=== PATIENT | male | born 1960 | race Caucasian/White ===

== ENCOUNTER 2016-04-18 08:33 | Emergency (ER) | payer OTHER ==
[2016-04-18 08:52] VITALS: BP 130/82; PULSE 65; RESP 16; TEMP 98.8; O2SAT 98
[2016-04-18] MEDS ORDERED: IBUPROFEN 600 MG TAB PO ONE (09:01)
--- NOTE | 2016-04-18 09:10 | UCPHY ---
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 Complains of pain with ambulation, particularly with going upstairs. He denies direct trauma or fall. REVIEW OF SYSTEMS: Aside from elements discussed in the HPI, a comprehensive 10-point review of systems was reviewed and is negative. PMH: Denies history of knee surgery. SOCIAL HISTORY: Works as a baker. FAMILY HISTORY: Reviewed, noncontributory PHYSICAL EXAM: General:Patient is alert, in no acute distress. Extremities: Left knee: Normal appearance. Full range of motion. Tenderness to palpation is present over the medial aspect of the knee. No effusion. Neuro: Oriented x3. Normal motor function. Normal sensory function. Smoking Status: Never smoked Constitutional: Initial Vital Signs Temperature (C) 37.1 C 04/18/16 08:49 Heart Rate 65 04/18/16 08:49 Respiratory Rate 16 04/18/16 08:49 Blood Pressure 130/82 H 04/18/16 08:49 O2 Sat (%) 98 04/18/16 08:49 O2 Delivery Mode Room Air Allergies/Adverse Reactions: No Known Allergies Allergy (Verified 04/18/16 08:52) Home Medications: Medication Instructions Recorded Allopurinol [Allopurinol 300 MG 300 mg PO DAILY 07/06/11 (RX)] Amlodipine Besylate/Benazepril 1 each PO DAILY 07/06/11 [Amlodipine-Benazepril 10-20 mg] Metoprolol/Hydrochlorothiazide 0.5 each PO DAILY 07/06/11 [Lopressor Hct 50-25 Tablet] Omeprazole Magnesium [Prilosec Otc] 20 mg PO DAILY 07/06/11 Indomethacin [Indocin 25 mg (RX)] 75 mg PO BID 07/08/11 Potassium Cl [Klor-Con 20 meq (RX)] 20 meq PO DAILY #30 tab 04/07/12 MDM/Departure - MDM Diagnostics: X-ray of the left knee is negative for fracture or dislocation. Viewed and interpreted by myself. ED Course/Re-evaluation: This patient presents with knee pain, likely representing knee sprain or meniscus injury. We will refer him to an orthopedist. - Depart Disposition: Home, Routine, Self-Care Clinical Impression: Knee sprain Qualifiers: Encounter type: initial encounter Involved ligament of knee: unspecified ligament Laterality: left Qualified Code(s): S83.92XA - Sprain of unspecified site of left knee, initial encounter Condition: Good Instructions: Knee Sprain (ED) Additional Instructions: Rest, ice, elevation. Follow up with an orthopedic surgeon within one week if pain persists. Return to the emergency department for worsening pain, swelling , numbness, weakness or other concerns. Wear splint for comfort, weight bear as tolerated. Use ibuprofen as directed. Stand Alone Forms: Work Excuse Referrals: NONE *PRIMARY CARE P,. [Primary Care Provider] - As per Instructions Grant Lynn MD [Medical Doctor] - As per Instructions - PQRS PQRS Measurement: 134: Depression screening and followup, PRIME MD-PHQ2 (12 years and older) Over the last 2 weeks, how often have you been bothered by any of the following problems? 1. Feeling down, depressed, or hopeless? 2. Little interest or pleasure in doing things? Patient answered no to both 1 and 2 130: Documentation of medications. Reviewed all patient medications, doses, route and frequency. 226: Do you smoke? No. 51: 18 years old and older with diagnosis of COPD, spirometry performance. Spirometry not performed; equipment not available. Patient has no history of COPD 52: 18 years old and older with COPD and symptoms of COPD or FEV1<60% predicted prescribed a B Agonist. Spirometry not performed; equipment not available.
== END 2016-04-18 09:44 | disposition home or self-care (01) ==
LOC: CED 08:33
DX: S83.92XA Sprain of unspecified site of left knee, initial encounter (principal); X50.1XXA Overexertion from prolonged static or awkward postures, initial encounter
CPT/HCPCS: 73564-PO; 99214-PO; G0463-PO; L1830

== ENCOUNTER → 2016-08-19 | Outpatient (CLI) | payer OTHER | LOC: CIMAGING 14:51 | PROVIDERS: ATTEND Family Medicine | DX: R10.30 Lower abdominal pain, unspecified (principal) | CPT/HCPCS: 76882-PO ==

== ENCOUNTER → 2016-12-04 | Outpatient (CLI) | payer OTHER ==
[~2016-12-04] MED LIST: IOPAMIDOL (ISOVUE-300) 100 ML BTL ONE
== END ==
LOC: CIMAGING 13:43
PROVIDERS: ATTEND Family Medicine
DX: R16.0 Hepatomegaly, not elsewhere classified (principal); R16.1 Splenomegaly, not elsewhere classified; Z98.890 Other specified postprocedural states; Z87.19 Personal history of other diseases of the digestive system
CPT/HCPCS: 74177-PO; Q9967

== ENCOUNTER 2016-12-23 08:50 | Emergency (ER) | payer OTHER ==
--- NOTE | 2016-12-23 09:02 | CPEKG ---
Heart Rate: 59 RR Interval: 1017 P-R Interval: 196 QRSD Interval: 102 QT Interval: 424 QTC Interval: 420 P [place]: 25 QRS [place]: 9 T Wave [place]: 22 EKG Severity - ABNORMAL ECG - EKG Impression: SINUS RHYTHM EKG Impression: PROBABLE INFERIOR INFARCT, OLD Electronically Signed By: Raj Bee 23-Dec-2016 10:40:30
[2016-12-23 09:05] VITALS: RESP 16; TEMP 98.6
--- NOTE | 2016-12-23 09:11 | EDPHY ---
H & P Stated Complaint: chest pain since last night and sob and left arm weakness. Time Seen by Provider: 12/23/16 09:01 HPI/ROS: Chief Complaint: Chest pain HPI: 56-year-old male with a history of hypertension presenting with left sided chest pain which started last night about 7 o'clock last until 2:00 a.m.. Patient woke up pain-free this morning. But primary physician was told to come the emergency depart for further evaluation. He does have some shortness of breath when he walks up stairs. He also has been having some increasing leg swelling. He had an echocardiogram done last week but has not yet had the result. No recent fevers or chills. No cough. No nausea or vomiting. Patient states he has had similar pains in the past but is just ignored them. Has had a catheterization years ago. Has a family history of coronary disease in his father. Pain is not pleuritic. At worst is a 5/10 and is dull. There are no aggravating or alleviating factors. ROS: 10 point Review of Systems is negative except as noted in the HPI. PMH: Hypertension, gout Social History: No smoking, no alcohol, no recreational drug use Family History: Father had coronary disease in his 60s Physical Exam: Gen: Awake, Alert, No Distress HEENT: Nose: no rhinorrhea Eyes: PERRLA, EOMI Mouth: Moist mucosa Neck: Supple, no JVD Chest: nontender, lungs clear to auscultation Heart: S1, S2 normal, no murmur Abd: Soft, non-tender, no guarding Back: no CVA tenderness, no midline tenderness Ext: 1+ edema, non-tender Skin: no rash Neuro: CN II-XII intact, Sensation grossly intact, Strength 5/5 in bilateral upper and lower extremities - Personal History Current Tetanus/Diphtheria Vaccine: Yes Current Tetanus Diphtheria and Acellular Pertussis (TDAP): Yes Tetanus Vaccine Date: unsure - Medical/Surgical History Hx Asthma: No Hx Chronic Respiratory Disease: No Hx Diabetes: No Hx Cardiac Disease: No Hx Renal Disease: No Hx Cirrhosis: No Hx Alcoholism: Yes Hx HIV/AIDS: No Hx Splenectomy or Spleen Trauma: No Other PMH: PMH:HTN,GOUT,HYPOKALEMIA. PSH:APPY,Hernia repair. Chews tobacco 40 + years. quit drinking etoh in Feb 2016 - Social History Smoking Status: Never smoked Constitutional: Initial Vital Signs Temperature (C) 37 C 12/23/16 08:58 Heart Rate 59 L 12/23/16 08:58 Respiratory Rate 16 12/23/16 08:58 Blood Pressure 143/85 H 12/23/16 08:58 O2 Sat (%) 96 12/23/16 08:58 O2 Delivery Mode Room Air Allergies/Adverse Reactions: No Known Allergies Allergy (Verified 12/23/16 09:05) Home Medications: Medication Instructions Recorded Allopurinol [Allopurinol 300 MG 300 mg PO DAILY 07/06/11 (RX)] Amlodipine Besylate/Benazepril 1 each PO DAILY 07/06/11 [Amlodipine-Benazepril 10-20 mg] Potassium Cl [Klor-Con 20 meq (RX)] 20 meq PO DAILY #30 tab 04/07/12 Allopurinol 12/23/16 Furosemide 12/23/16 Metoprolol Succinate 12/23/16 Trazad 12/23/16 VITAMIN B COMPLEX 12/23/16 Vitamin D3 12/23/16 Medical Decision Making - Diagnostics EKG Interpretation: ECG time 9:00 a.m.. Is sinus rhythm with a rate of 59, normal axis, normal intervals, there are Q-waves in leads to 3 in AVF consistent with a old infarct. This is unchanged from an ECG from 07/01/2015. Imaging Results: Imaging Impressions Chest X-Ray 12/23/16 09:20 Impression: Stable mild cardiomegaly and right middle lobe linear scarring, compared to 07/01/2015. Imaging: I viewed and interpreted images myself ED Course/Re-evaluation: 56-year-old male who had chest pain yesterday evening. He has been pain-free since 2:00 a.m.. ECG shows no acute changes. Troponin is negative. Chest x- ray shows mild cardiomegaly which is unchanged from prior. Patient had NyQuil week ago is awaiting those results. No evidence of acute cardiac ischemia at this time. He will be discharged with referral to follow up with primary care physician and with Cardiology. Return for any concerns. - Data Points Laboratory Results: Laboratory Results 12/23/16 09:16 12/23/16 09:13 12/23/16 12/23/16 12/23/16 09:16 09:16 09:13 WBC 7.07 10^3/uL 10^3/uL (3.80-9.50) RBC 5.29 10^6/uL 10^6/uL (4.40-6.38) Hgb 16.3 g/dL g/dL (13.7-17.5) Hct 45.0 % % (40.0-51.0) MCV 85.1 fL fL (81.5-99.8) MCH 30.8 pg pg (27.9-34.1) MCHC 36.2 g/dL g/dL (32.4-36.7) RDW 13.2 % % (11.5-15.2) Plt Count 184 10^3/uL 10^3/uL (150-400) MPV 8.3 fL L fL (8.7-11.7) Neut % (Auto) 72.8 % % (39.3-74.2) Lymph % (Auto) 15.4 % % (15.0-45.0) [place] % (Auto) 8.1 % % (4.5-13.0) Eos % (Auto) 2.5 % % (0.6-7.6) Baso % (Auto) 0.6 % % (0.3-1.7) Nucleat RBC Rel Count 0.0 % % (0.0-0.2) Absolute Neuts (auto) 5.15 10^3/uL 10^3/uL (1.70-6.50) Absolute Lymphs (auto) 1.09 10^3/uL 10^3/uL (1.00-3.00) Absolute Monos (auto) 0.57 10^3/uL 10^3/uL (0.30-0.80) Absolute Eos (auto) 0.18 10^3/uL 10^3/uL (0.03-0.40) Absolute Basos (auto) 0.04 10^3/uL 10^3/uL (0.02-0.10) Absolute Nucleated RBC 0.00 10^3/uL 10^3/uL (0-0.01) Immature Gran % 0.6 % % (0.0-1.1) Immature Gran # 0.04 10^3/uL 10^3/uL (0.00-0.10) Sodium 141 mEq/L mEq/L (134-144) Potassium 4.2 mEq/L mEq/L (3.5-5.2) Chloride 100 mEq/L mEq/L (97-110) Carbon Dioxide 26 mEq/l mEq/l (22-31) Anion Gap 15 mEq/L mEq/L (8-16) BUN 6 mg/dL L mg/dL (7-23) Creatinine 0.8 mg/dL mg/dL (0.7-1.3) Estimated GFR > 60 Glucose 96 mg/dL mg/dL (70-100) Calcium 10.1 mg/dL mg/dL (8.5-10.4) Troponin I < 0.012 ng/mL ng/mL (0.000-0.034) Medications Given: Discontinued Medications Aspirin (Aspirin) 243 mg PO EDNOW ONE Stop: 12/23/16 09:21 Last Admin: 12/23/16 09:24 Dose: 243 mg Departure - Departure Disposition: Home, Routine, Self-Care Clinical Impression: Chest pain Condition: Good Instructions: Chest Pain (ED) Additional Instructions: It is very important that 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 I have given you a referral to Dr. Pearce. Return to the emergency department for return of chest pain, worsening shortness of breath, fevers, chills, or any other concerns. Referrals: Nathalia Miguel DO [Primary Care Provider] - As per Instructions Edmund Pearce MD [Medical Doctor] - As per Instructions
[2016-12-23] MEDS ORDERED: ASPIRIN 81 MG CHEWABLE TAB PO ONE (09:20)
[2016-12-23 09:26] LABS: % IMMATURE GRANULYOCYTES 0.6 % (0.0-1.1); ABSOLUTE IMMATURE GRANULOCYTES 0.04 10^3/uL (0.00-0.10); ADD DIFF? NO; ADD MORPH? NO; ADD SCAN? NO; ATYPICAL LYMPHOCYTE FLAG 0 (0-99); FRAGMENT RBC FLAG 0 (0-99); HEMOGLOBIN 16.3 g/dL (13.7-17.5); LEFT SHIFT FLG 0 (0-99); LIPEMIA HEMOLYSIS FLAG 90 (0-99); MEAN CELL HEMOGLOBIN 30.8 pg (27.9-34.1); MEAN CELL HEMOGLOBIN CONCENTR. 36.2 g/dL (32.4-36.7); MEAN CELL VOLUME 85.1 fL (81.5-99.8); MEAN PLATELET VOLUME 8.3 fL (8.7-11.7); PLATELET CLUMPS FLAG 0 (0-99); PLATELET COUNT 184 10^3/uL (150-400); RED BLOOD CELL COUNT 5.29 10^6/uL (4.40-6.38); RED CELL DISTRIBUTION WIDTH 13.2 % (11.5-15.2)
[2016-12-23 10:16] LABS: ANION GAP 15 mEq/L (8-16); CALCIUM 10.1 mg/dL (8.5-10.4); CARBON DIOXIDE 26 mEq/l (22-31); CHLORIDE 100 mEq/L (97-110); CREATININE 0.8 mg/dL (0.7-1.3); GLOMERULAR FILTRATION RATE > 60; GLUCOSE 96 mg/dL (70-100); POTASSIUM 4.2 mEq/L (3.5-5.2); SODIUM 141 mEq/L (134-144)
[2016-12-23 10:50] VITALS: BP 115/69; PULSE 56; O2SAT 94
== END 2016-12-23 10:45 | disposition home or self-care (01) ==
LOC: CED 08:50
DX: R07.9 Chest pain, unspecified (principal); I10 Essential (primary) hypertension; F17.220 Nicotine dependence, chewing tobacco, uncomplicated
CPT/HCPCS: 71020-PO; 80048-PO; 84484-PO; 85025-PO

== ENCOUNTER → 2018-03-11 | Outpatient (CLI) | payer OTHER | LOC: FIMAGING 13:44 | PROVIDERS: ATTEND Family Medicine | DX: N50.811 Right testicular pain (principal) ==

== ENCOUNTER → 2018-04-11 | Outpatient (CLI) | payer OTHER | LOC: EMCIMAGING 08:28 → EDSTATUS 14:47 | PROVIDERS: ATTEND Nurse Practitioner Family | DX: K80.20 Calculus of gallbladder without cholecystitis without obstruction (principal) | CPT/HCPCS: 76705-PN ==